=== PATIENT | female | born 1975 | race Caucasian/White ===

== ENCOUNTER 2016-12-30 14:02 | Emergency (ER) | payer OTHER ==
[~2016-12-30] VITALS: Ht 162.6 cm; Wt 81.6 kg
[2016-12-30] MEDS ORDERED: cloNIDine HCL 0.1 MG TAB PO ONE (15:00)
[2016-12-30] MEDS ORDERED: ONDANSETRON HCL 4 MG/2 ML VIAL IM ONE (15:00)
[2016-12-30] MEDS ORDERED: MORPHINE SULFATE 4 MG/ML SYRG IM ONE (15:00)
[2016-12-30 16:19] VITALS: BP 179/121
== END 2016-12-30 16:41 | disposition home or self-care (01) ==
LOC: ER 14:02
DX: S16.1XXA Strain of muscle, fascia and tendon at neck level, initial encounter (principal); I10 Essential (primary) hypertension; F17.210 Nicotine dependence, cigarettes, uncomplicated; Z90.49 Acquired absence of other specified parts of digestive tract
CPT/HCPCS: 96372; 99284; J2270; J2405

== ENCOUNTER 2017-07-09 11:58 | Emergency (ER) | payer OTHER ==
[~2017-07-09] VITALS: Ht 162.6 cm; Wt 86.2 kg
[2017-07-09 12:05] VITALS: BP 154/101
== END 2017-07-09 13:52 | disposition left against medical advice (07) ==
LOC: ER 11:58
DX: I10 Essential (primary) hypertension (principal); R20.0 Anesthesia of skin; Z53.21 Procedure and treatment not carried out due to patient leaving prior to being seen by health care provider
CPT/HCPCS: 93005

== ENCOUNTER 2025-01-23 17:39 | Inpatient (IN) | payer OTHER, SELFPAY ==
[~2025-01-23] VITALS: Ht 162.6 cm; Wt 94.0 kg
--- NOTE | 2025-01-23 19:24 | ED.PDOC ---
HPI (NEURO) HPI Comments 49 year old female with a Hx of HTN, Seizures, and CVA presents to the ED for the c/c of Constant Left Arm/Leg Numbness, and Tingling. Pt states that her symptoms started 5x days ago and has found no alleviating factors. Patient states the symptoms started in her left left hand and foot, then the numbness/tingling started to progress to her left wrist and ankle. Patient states she went to urgent Care for the symptoms, and was referred to the ER for further evaluation. No other associated symptoms, modifiers, recent injuries or sick contacts present at this time. Chief Complaint: Left Sided Weakness Time Seen by MD: 19:19 Reviewed Notes: Nurses Notes, Medications, Allergies Information Source: Patient Mode of Arrival: Ambulatory Severity: Moderate Dizziness/Weakness Severity: Does not affect activitie Headache Severity: Moderate Timing: Days Duration: Intermittent, Days Prehospital treatment: None Numbness Location: (L) Sided, (L) Arm, (L) Leg Onset: At rest Circumstances: Spontaneous Symptoms: Weakness, Numbness Before: Normal During: Awake History of: CVA, Hypertension Associated Signs and Symptoms: Weakness, Numbness Past Medical History PAST MEDICAL HISTORY: CVA, HTN, Seizures Surgical History: Cholecystectomy EDGER LINER History: No Pertinent EDGER LINER History Family History Family History: Reviewed,noncontributory to illness Social History Smoker: Cigarettes, Less Than 1 Pack/Day Alcohol: Rarely Drugs: Denies Drug Use Lives In: Home All Other Systems: Reviewed and Negative (Comprehensive systems review obtained and negative except for what is stated in the HPI.) Physical Exam General Appearance: No Apparent Distress, Obese HEENT: Other (Pupils and face symmetric. Moist mucous membranes.) Neck: Full Range of Motion, Normal Inspection Respiratory: Lungs Clear, No Accessory Muscle Use, No Respiratory Distress, Normal Breath Sounds Cardiovascular: No Edema, No JVD, Regular Rate/Rhythm Breast Exam: Deferred Gastrointestinal: Non Tender, Soft Genitalia: Deferred Pelvic: Deferred Rectal: Deferred Extremities: Normal inspection, Normal range of motion, Non-tender, No pedal edema Neurologic: Alert (Oriented x4), rn new grad II-XII nml as Tested, Normal Affect, Normal Mood, Other (Ambulatory. Diminished light touch sensation left hand/wrist, left foot/ankle) Cerebellar Function: NOT DONE Reflexes: NOT DONE Skin: Dry, Normal Color, Warm Lymphatic: NOT DONE Was a procedure done? Was a procedure done?: No Differential Diagnosis (SZ) Seizure: N/A CVA: CVA, Electrolyte Imbalance, Encephalopathy, Hypoglycemia, TIA, Other (Brandi pheral neuropathy) General Weakness: Anemia X-Ray, Labs, Meds, VS Vital Signs Date Time Temp Pulse Resp B/P (MAP) Pulse Ox O2 Delivery O2 Flow Rate FiO2 01/23/25 19:51 98.7 90 18 115/73 (87) 99 98.7 01/23/25 19:51 90 18 01/23/25 17:43 97.3 97 18 119/70 77 97.3 Lab Test 01/23/25 20:39 01/23/25 19:37 01/23/25 17:50 Range/Units Troponin I High Sensitivity 8 8 </=34 ng/L White Blood Count 10.5 4.4-10.8 10^3/uL Red Blood Count 5.63 H 4.0-5.20 10^6/uL Hemoglobin 17.3 H 12.2-16.2 g/dL Hematocrit 50.6 H 36.0-46.0 % Mean Corpuscular Volume 89.9 80.0-100.0 fL Mean Corpuscular Hemoglobin 30.8 28.0-32.0 pg Mean Corpuscular Hemoglobin Concent 34.2 32.0-36.0 g/dL Red Cell Distribution Width 13.4 11.8-14.3 % Platelet Count 295 140-450 10^3/uL Mean Platelet Volume 7.4 6.9-10.8 fL Neutrophils (%) (Auto) 68.8 37.0-80.0 % Lymphocytes (%) (Auto) 20.5 10.0-50.0 % Monocytes (%) (Auto) 6.7 0.0-12.0 % Eosinophils (%) (Auto) 3.2 0.0-7.0 % Basophils (%) (Auto) 0.8 0.0-2.0 % Neutrophils # (Auto) 7.3 1.6-8.6 10 ^3/uL Lymphocytes # (Auto) 2.2 0.4-5.4 10 ^3/uL Monocytes # (Auto) 0.7 0-1.3 10 ^3/uL Eosinophils # (Auto) 0.3 0-0.8 10 ^3/uL Basophils # (Auto) 0.1 0-0.2 10 ^3/uL Nucleated Red Blood Cells 0.2 % Sodium Level 137 136-145 mmol/L Potassium Level 4.5 3.5-5.1 mmol/L Chloride Level 107 98-107 mmol/L Carbon Dioxide Level 23 20-31 mmol/L Anion Gap 7 5-15 Blood Urea Nitrogen 13 9-23 mg/dL Creatinine 1.01 0.550-1.02 mg/dL Glomerular Filtration Rate Calc 69 >90 mL/min BUN/Creatinine Ratio 12.9 10.0-20.0 Serum Glucose 78 74-106 mg/dL Calcium Level 8.9 8.7-10.4 mg/dL B-Type Natriuretic Peptide 22.05 0-100 pg/mL Urine Color Colorless Yellow Urine Clarity Turbid H Clear Urine pH 5.5 5.0-9.0 Urine Specific [place] 1.023 1.001-1.035 Urine Protein Negative Negative Urine Ketones Negative Negative Urine Blood Negative Negative /uL Urine Nitrite 2+ H Negative Urine Bilirubin Negative Negative Urine Urobilinogen Normal Negative mg/dL Urine Leukocyte Esterase 3+ Negative /uL Urine RBC 7 0 - 4 /hpf Urine Microscopic WBC 14 H 0-5 /HPF Urine Squamous Epithelial Cells Few <5 /hpf Urine Bacteria None seen None Seen /hpf Urine Mucus Few None Seen Urine Glucose Normal Normal mg/dL Urine Test Negative Negative Current Medications Medications (Trade) Dose Ordered Sig/Mariano Route Start Time Stop Time Status Last Admin Aspirin 325 mg ONCE ONCE PO 01/23/25 19:30 01/23/25 19:31 DC 01/23/25 19:30 Ceftriaxone Sodium 50 ml @ 100 mls/hr ONCE ONCE IV 01/23/25 21:15 01/23/25 21:44 DC 01/23/25 23:23 PROCEDURE(s): HWOCT - HEAD WITHOUT CONTRAST REASON: L hand/wrist, L foot/ankle numbness ORDER NUMBER(s): [id number], ACCESSION NUMBER(s): [id number] Indication: L hand/wrist, L foot/ankle numbness Comparison: None Technique: Utilizing a multislice CT scanner, a CT scan of the brain was performed without intravenous contrast. Coronal and sagittal reformatted images. All CT scans at this facility use dose modulation, iterative reconstruction, and/or weight based dosing when appropriate to reduce radiation dose to as low as reasonably achievable. Dose: CTDIvol: 53.28 mGy, DLP: 943.46 mGy.cm FINDINGS: Evaluation is mildly degraded by motion and streak artifact. There is tissue loss with gliosis/encephalomalacia within the left temporoparietal lobe. There is ex vacuo dilatation of the left lateral ventricle. There is no evidence for acute territorial infarct, hemorrhage, or mass effect. The orbits are normal. The visualized paranasal sinuses and mastoid air cells are clear. The soft tissues and osseous structures appear within normal limits. IMPRESSION: 1. Subacute to chronic left MCA territory infarct with ex vacuo dilatation of the left lateral ventricle. Comparison with prior outside imaging is suggested in assessing acuity and interval change. If no prior imaging is available, MRI is suggested in further assessment. 2. No acute intracranial hemorrhage. X-Ray, Labs, Meds, VS Comment 49 year old female with a Hx of HTN, Seizures, and CVA presents to the ED for the c/c of Constant Left Arm/Leg Numbness, and Tingling for the last 5 days Vitals unremarkable Exam remarkable for diminished light touch sensation in the left hand/wrist and left foot/ankle Rhythm strip independently interpreted by me: Sinus rhythm, rate 97, no ectopy. CT head IMPRESSION: 1. Subacute to chronic left MCA territory infarct with ex vacuo dilatation of the left lateral ventricle. Comparison with prior outside imaging is suggested in assessing acuity and interval change. If no prior imaging is available, MRI is suggested in further assessment. 2. No acute intracranial hemorrhage. CBC, basic metabolic panel, BNP and troponin unremarkable UA abnormal consistent with UTI Patient treated with the following in the ED: Aspirin 325 mg p.o., Rocephin 1 g IV On re-evaluation, there have been no new neurologic changes. Vitals were stable. Plan is to admit the patient for brain MRI and Neurology evaluation. Time of 1ST Reevaluation: 19:51 Reevaluation 1ST: Unchanged Patient Education/Counseling: Diagnosis, Treatment, Need For Follow Up Family Education/Counseling: No Family Present Departure 1 Departure Time of Disposition: 21:00 Impression: Primary Impression: Left upper extremity numbness Additional Impressions: Numbness of left lower extremity UTI (urinary tract infection) Disposition: 09 ADMITTED INPATIENT Admit to: Tele Condition: Guarded e-Prescriptions No Active Prescriptions or Reported Meds Critical Care Note Critical Care Time?: No Stability Stability form required: No Heart Score Heart Score: Heart Score Response (Comments) Value History N/A 0 EKG N/A 0 Age N/A 0 Risk Factors N/A 0 Troponin N/A 0 Total 0 I personally scribed for TERRELL MEDEL MD ([email or web address]) on 01/23/25 at 19:24. Electronically submitted by Omar Ta ([email or web address]). I personally scribed for TERRELL MEDEL MD ([email or web address]) on 01/23/25 at 21:11. Electronically submitted by Omar Ta ([email or web address]). TERRELL MEDEL MD Jan 23, 2025 19:24
[2025-01-23 19:46] LABS: Hematocrit 50.6 % (36.0-46.0); Hemoglobin 17.3 g/dL (12.2-16.2); Mean Corpuscular Hemoglobin 30.8 pg (28.0-32.0); Mean Corpuscular Volume 89.9 fL (80.0-100.0); Nucleated Red Blood Cells % 0.2 %
[2025-01-23 19:54] LABS: Anion Gap 7 (5-15); Carbon Dioxide 23 mmol/L (20-31); Potassium 4.5 mmol/L (3.5-5.1); Sodium 137 mmol/L (136-145)
[2025-01-23 19:55] LABS: Calcium 8.9 mg/dL (8.7-10.4)
[2025-01-23 20:00] LABS: BUN/Creatinine Ratio 12.9 (10.0-20.0); Blood Urea Nitrogen 13 mg/dL (9-23); Glucose 78 mg/dL (74-106)
[2025-01-23 20:01] LABS: Chloride 107 mmol/L (98-107)
[2025-01-23 20:29] LABS: Urine Protein, UAD Negative (Negative)
--- NOTE | 2025-01-23 20:31 | DVH ---
Indication: L hand/wrist, L foot/ankle numbness Comparison: None Technique: Utilizing a multislice CT scanner, a CT scan of the brain was performed without intravenou s contrast. Coronal and sagittal reformatted images. All CT scans at this facility use dose modulation, iterative reconstruction, and/or weight based dosi ng when appropriate to reduce radiation dose to as low as reasonably achievable. Dose: CTDIvol: 53.28 mGy, DLP: 943.46 mGy.cm FINDINGS: Evaluation is mildly degraded by motion and streak artifact. There is tissue loss with gliosis/encephalomalacia within the left temporoparietal lobe. There is ex vacuo dilatation of the left lateral ventricle. There is no evidence for acute territorial infarct, hemorrhage, or mass effect. The orbits are normal. The visualized paranasal sinuses and mastoid air cells are clear. The soft t issues and osseous structures appear within normal limits. IMPRESSION: 1. Subacute to chronic left MCA territory infarct with ex vacuo dilatation of the left lateral ventri liberty. Comparison with prior outside imaging is suggested in assessing acuity and interval change. If no prior imaging is available, MRI is suggested in further assessment. 2. No acute intracranial hemorrhage.
[2025-01-23] MEDS ORDERED: MORPHINE SULFATE INJ 2 MG/ml SYRG IV PRN (22:00)
[2025-01-23] MEDS ORDERED: NITROGLYCERIN 0.4 MG SL TAB SL PRN (22:00)
[2025-01-23] MEDS ORDERED: DOCUSATE SOD 100 MG CAP PO PRN (22:00)
[2025-01-23] MEDS ORDERED: ONDANSETRON HCL 4 MG/2 ML VIAL IV PRN (22:00)
[2025-01-23] MEDS ORDERED: ACETAMINOPHEN 325 MG TAB PO PRN (22:00)
--- NOTE | 2025-01-23 23:16 | DVHHP2 ---
History of Present Illness History of Present Illness This is a 49-year-old female with a history of hypertension, seizures, and cerebrovascular accident (CVA) 2019 with no residual weakness, same sex partner presents to the emergency department with a 5-day history of constant numbness and tingling in the left upper and lower extremities. Symptoms began spontaneously at rest, initially affecting the left hand and foot, and gradually progressed to involve the left wrist and ankle. The patient reports no alleviating factors and denies any associated symptoms such as dizziness, recent injuries, sick contacts, or other modifiers. She was evaluated at urgent care and referred to the ED for further assessment. She arrived ambulatory and reports moderate severity of symptoms, which are intermittent and do not affect daily activities. No prehospital treatment was administered. Hemodynamically stable. CBC within normal limit, likely concentrated due to dehydration, CBC unremarkable, troponin BNP unremarkable, urinalysis leukocyte esterase, nitrite positive pointing towards UTI, previous microbiology in 2011, no resistant bacteria noted. CT shows previous stroke but no acute changes, Subacute to chronic left MCA territory infarct with ex vacuo dilatation of the left lateral ventricle. PAST MEDICAL HISTORY: CVA 2019 with no residual weakness, HTN, Seizures Surgical History: Cholecystectomy, tonsillectomy ZIGZAG APPLIQUER History: No Pertinent ZIGZAG APPLIQUER History Social History : Smoker: Cigarettes occasionally, Less Than 1 Pack/Day Alcohol: Drink socially Drugs: Denies Drug Use Lives In: Home Allergy: No known allergies outpatient medications: Lisinopril 20 mg p.o. daily Review of Systems Constitutional: Yes: Malaise; No: Fever, Chills, Sweats, Weakness, Other Eyes: No: Pain, Vision change, Conjunctivae inflammation, Eyelid inflammation, Other, Redness ENT: No: Ear pain, Ear discharge, Nose pain, Nose discharge, Nose congestion, Mouth pain, Mouth swelling, Throat pain, Throat swelling, Other Respiratory: No: Cough, Dry, Shortness of breath, SOB with excertion, Wheezing, Hemoptysis, Pleuritic Pain, Sputum, Wheezing, Other Cardiovascular: No: Chest Pain, Palpitations, Orthopnea, Paroxysmal Noc. Dyspnea, Edema, Lt Headedness, Other Gastrointestinal: No: Nausea, Vomiting, Abdominal Pain, Diarrhea, Constipation, Melena, Hematochezia, Other Genitourinary: No Dysuria; Frequency; No Incontinence, No Hematuria, No Retention, No Other Musculoskeletal: No: other, neck pain, shoulder pain, arm pain, back pain, hand pain, leg pain, foot pain Skin: No: Rash, Lesions, Jaundice, Bruising, Other Neurological: Numbness, Other (Tingling sensation in both left upper and lower extremity); No: Weakness, Incoordination, Change in speech, Confusion, Seizures Allergies: Coded Allergies: NO KNOWN ALLERGIES (Unverified , 04/26/12) Medications Current Medications Medications Dose Ordered Sig/Mariano Route Start Time Stop Time Status Last Admin Dose Admin Sodium Chloride 1,000 ml @ 60 mls/hr [id number] IV 01/23/25 22:00 UNV Acetaminophen 325 mg Q4HP PRN PO 01/23/25 22:00 UNV Ondansetron HCl 4 mg Q4HP PRN IV 01/23/25 22:00 UNV Docusate Sodium 100 mg BIDPRN PRN PO 01/23/25 22:00 UNV Enoxaparin Sodium 40 mg DAILY SC 01/24/25 10:00 UNV Nitroglycerin 0.4 mg Q5MINP PRN SL 01/23/25 22:00 UNV Morphine Sulfate 2 mg Q30M PRN IV 01/23/25 22:00 UNV Atorvastatin Calcium 40 mg HS PO 01/24/25 22:00 UNV Ceftriaxone Sodium 50 ml @ 100 mls/hr DAILY@09 IV 01/24/25 09:00 UNV Aspirin 81 mg DAILY PO 01/24/25 10:00 UNV Exam Vital Signs Vital Signs Date Time Temp Pulse Resp B/P (MAP) Pulse Ox O2 Delivery O2 Flow Rate FiO2 01/23/25 19:51 98.7 90 18 115/73 (87) 99 98.7 General Appearance: Oriented X3, Cooperative, mild distress HEENT: Atraumatic, PERRLA, EOMI Respiratory: Clear to auscultation, Normal air movement Cardiovascular: Regular rate, Normal S1, Normal S2 Abdominal: Normal bowel sounds, Soft, No tenderness Extremities: No clubbing, No cyanosis, No edema Skin: No rashes, No breakdown Neuro: Normal gait, Strength at 5/5 X4 ext (Tingling sensation both upper and lower extremity), Sensation intact Labs/Xrays Labs Test 01/23/25 20:39 01/23/25 19:37 01/23/25 17:50 Range/Units Troponin I High Sensitivity 8 </=34 ng/L White Blood Count 10.5 4.4-10.8 10^3/uL Red Blood Count 5.63 H 4.0-5.20 10^6/uL Hemoglobin 17.3 H 12.2-16.2 g/dL Hematocrit 50.6 H 36.0-46.0 % Mean Corpuscular Volume 89.9 80.0-100.0 fL Mean Corpuscular Hemoglobin 30.8 28.0-32.0 pg Mean Corpuscular Hemoglobin Concent 34.2 32.0-36.0 g/dL Red Cell Distribution Width 13.4 11.8-14.3 % Platelet Count 295 140-450 10^3/uL Mean Platelet Volume 7.4 6.9-10.8 fL Neutrophils (%) (Auto) 68.8 37.0-80.0 % Lymphocytes (%) (Auto) 20.5 10.0-50.0 % Monocytes (%) (Auto) 6.7 0.0-12.0 % Eosinophils (%) (Auto) 3.2 0.0-7.0 % Basophils (%) (Auto) 0.8 0.0-2.0 % Neutrophils # (Auto) 7.3 1.6-8.6 10 ^3/uL Lymphocytes # (Auto) 2.2 0.4-5.4 10 ^3/uL Monocytes # (Auto) 0.7 0-1.3 10 ^3/uL Eosinophils # (Auto) 0.3 0-0.8 10 ^3/uL Basophils # (Auto) 0.1 0-0.2 10 ^3/uL Nucleated Red Blood Cells 0.2 % Sodium Level 137 136-145 mmol/L Potassium Level 4.5 3.5-5.1 mmol/L Chloride Level 107 98-107 mmol/L Carbon Dioxide Level 23 20-31 mmol/L Anion Gap 7 5-15 Blood Urea Nitrogen 13 9-23 mg/dL Creatinine 1.01 0.550-1.02 mg/dL Glomerular Filtration Rate Calc 69 >90 mL/min BUN/Creatinine Ratio 12.9 10.0-20.0 Serum Glucose 78 74-106 mg/dL Calcium Level 8.9 8.7-10.4 mg/dL B-Type Natriuretic Peptide 22.05 0-100 pg/mL Urine Color Colorless Yellow Urine Clarity Turbid H Clear Urine pH 5.5 5.0-9.0 Urine Specific [place] 1.023 1.001-1.035 Urine Protein Negative Negative Urine Ketones Negative Negative Urine Blood Negative Negative /uL Urine Nitrite 2+ H Negative Urine Bilirubin Negative Negative Urine Urobilinogen Normal Negative mg/dL Urine Leukocyte Esterase 3+ Negative /uL Urine RBC 7 0 - 4 /hpf Urine Microscopic WBC 14 H 0-5 /HPF Urine Squamous Epithelial Cells Few <5 /hpf Urine Bacteria None seen None Seen /hpf Urine Mucus Few None Seen Urine Glucose Normal Normal mg/dL SEPSIS Sepsis Screen Date sepsis recognized/suspect: Jan 23, 2025 Time Sepsis recognized/suspect: 1745 Recent Procedure: No On Antibiotic Therapy: No Respiratory Rate >20: No Heart Rate >90: No Temp<36 C (96.8 F) or >38.3 C: No SBP <90 or MAP <65 mmHG: No New Acute Mental Status Change: No Is the patient on CPAP, BIPAP,: No Physician Orders Electrocardigram (01/23/25 19:28) Head Without Contrast (01/23/25 19:28) Admit (01/23/25 22:00) Allergies (01/23/25 22:00) Code Status (01/23/25 22:00) Sodium Chloride 0.9% (01/23/25 22:00) Docusate Sodium Capsule (Colace Capsule) (01/23/25 22:00) Enoxaparin Sodium (Lovenox) (01/24/25 10:00) Complete Blood Count (01/24/25 04:00) Comprehensive Metabolic Panel (01/24/25 04:00) Cardiac Diet-2gna,Lofat,Lochol (01/24/25 Breakfast) Condition: Fair (01/23/25 22:00) Nitroglycerin Sublingual (Ntrostat Subli (01/23/25 22:00) Morphine Sulfate Injection (01/23/25 22:00) Acetaminophen Tablet (Tylenol Tablet) (01/23/25 22:00) Ondansetron Hcl (Zofran) (01/23/25 22:00) Atorvastatin (Lipitor) (01/24/25 22:00) Ceftriaxone 1gm/50ml D5w (Rocephin) (01/24/25 09:00) Aspirin Tablet (01/24/25 10:00) Urine Bacterial Culture (01/23/25 23:06) Blood Culture (01/23/25 23:06) Test, Urine (01/23/25 23:06) Echo 2d Mode Cardiac Dop (01/23/25 23:06) Vital Signs Date Time Temp Pulse Resp B/P (MAP) Pulse Ox O2 Delivery O2 Flow Rate FiO2 01/23/25 19:51 98.7 90 18 115/73 (87) 99 98.7 01/23/25 19:51 90 18 01/23/25 17:43 97.3 97 18 119/70 77 97.3 Laboratory Tests Test 01/23/25 19:37 White Blood Count 10.5 10^3/uL (4.4-10.8) Medications Medications Dose Ordered Sig/Mariano Route Start Time Stop Time Status Last Admin Dose Admin Aspirin 325 mg ONCE ONCE PO 01/23/25 19:30 01/23/25 19:31 DC 01/23/25 19:30 325 MG Assessment/Plan Assessment/Plan # Urinary tract infection possibly gm positive/gm negative organism Status post IV ceftriaxone, aspirin 325 Likely uncomplicated, IV ceftriaxone 06/30, urine culture, blood culture, inpatient IV antibiotics to continue NSS 60 cc/hours Urine culture and blood cultures we will follow Tylenol 650 mg p.o. q.6 p.r.n. for pain # Neuropathy/stroke: Hemorrhagic stroke ruled out with CT scan, in-hospital monitoring, telemetry, neuro checks continue aspirin atorvastatin, as needed physiotherapy, r/o TIA vs Stroke # CVA, history 2018 with no residual weakness CT shows previous stroke but no acute changes, Subacute to chronic left MCA territory infarct with ex vacuo dilatation of the left lateral ventricle. Atorvastatin 40 mg p.o. daily Aspirin 81 mg p.o. daily Lipid profile and HbA1c will follow Echo # Essential hypertension Restart home med lisinopril 20mg. Monitor blood pressure # R/o Seizures, as per patient Not on any medication. Never seen by neurologist. # H/o Cholecystectomy # H/o Tonsillectomy Diet: Cardiac GI prophylaxis: Pantoprazole 40 mg p.o. daily DVT prophylaxis: Lovenox 40 mg sc daily Case discussed with Dr. Kim. Code status: Full code. Complex patient care discussion needed total 35 minutes. PCP: SADAF ELLER in Plan discussed with: Patient, Other (Nurse) My Orders Orders - MARY GA Procedure Category Date Status Time Admit ADMIT 01/23/25 Transmitted 22:00 Allergies WILLIAM 01/23/25 In Process 22:00 Code Status CODE 01/23/25 Transmitted 22:00 Sodium Chloride 0.9% PHA 01/23/25 Logged 22:00 Docusate Sodium PHA 01/23/25 Logged Capsule (Colace 22:00 Enoxaparin Sodium PHA 01/24/25 Logged (Lovenox) 10:00 Complete Blood Count LAB 01/24/25 Verified 04:00 Comprehensive LAB 01/24/25 Verified Metabolic Panel 04:00 Cardiac DIET 01/24/25 Transmitted Diet-2gna,Lofat,Lochol Breakfast Condition: Fair WILLIAM 01/23/25 In Process 22:00 Nitroglycerin PHA 01/23/25 Logged Sublingual (Ntrostat 22:00 Morphine Sulfate PHA 01/23/25 Logged Injection 22:00 Acetaminophen Tablet PHA 01/23/25 Logged (Tylenol Tablet) 22:00 Ondansetron Hcl PHA 01/23/25 Logged (Zofran) 22:00 Atorvastatin (Lipitor) PHA 01/24/25 Logged 22:00 Ceftriaxone 1gm/50ml PHA 01/24/25 Logged D5w (Rocephin) 09:00 Aspirin Tablet PHA 01/24/25 Logged 10:00 Urine Bacterial BRANDIN 01/23/25 Logged Culture 23:06 Blood Culture BRANDIN 01/23/25 Logged 23:06 Test, Urine LAB 01/23/25 Logged 23:06 Echo 2d Mode Cardiac US 01/23/25 Logged DOP 23:06 Date of Service: Jan 23, 2025 Billing Provider: KERON KIM MD Common Visit Codes: [id number] INP/OBS CARE (HIGH) Secondary Visit Codes: [id number] CARE PLAN 30 MINUTES MARY GA Jan 23, 2025 23:16
[2025-01-23] MEDS: cefTRIAXone 1GM/50ML D5W 50 ML IV ONE (23:23)
[2025-01-23] MEDS: SODIUM CHLORIDE 0.9% 1,000 ML IV SCH (23:26)
[2025-01-24 04:04] LABS: Hematocrit 48.1 % (36.0-46.0); Hemoglobin 16.7 g/dL (12.2-16.2); Mean Corpuscular Hemoglobin 31.1 pg (28.0-32.0); Mean Corpuscular Volume 89.5 fL (80.0-100.0); Nucleated Red Blood Cells % 0.2 %
[2025-01-24 04:11] LABS: Alanine Aminotransferase 14 U/L (7-40); Albumin 4.6 g/dL (3.2-4.8); Alkaline Phosphatase 71 U/L (46-116); Anion Gap 9 (5-15); BUN/Creatinine Ratio 15.2 (10.0-20.0); Blood Urea Nitrogen 14 mg/dL (9-23); Calcium 9.0 mg/dL (8.7-10.4); Carbon Dioxide 25 mmol/L (20-31); Chloride 105 mmol/L (98-107); Cholesterol 168 mg/dL (< 200); Glucose 93 mg/dL (74-106); HDL Cholesterol 43 mg/dL (40-59); Potassium 3.8 mmol/L (3.5-5.1); Sodium 139 mmol/L (136-145); Total Protein 6.8 g/dL (5.7-8.2)
[2025-01-24 04:15] LABS: Bilirubin, Total 0.3 mg/dL (0.2-1.0); Triglycerides 231 mg/dL (< 150)
[2025-01-24] MEDS: cefTRIAXone 1GM/50ML D5W 50 ML IV SCH (08:31)
[2025-01-24] MEDS: ENOXAPARIN SOD 40 MG/0.4 ML SYRINGE SC SCH (08:31)
[2025-01-24 08:54] VITALS: BP 109/62; PULSE 72; PULSE 76; RESP 16; RESP 18; TEMP 98.2; O2SAT 97; O2SAT 98
[2025-01-24] MEDS ORDERED: LISI20TA56 PO (09:25)
[2025-01-24 13:00] VITALS: BP 117/51; PULSE 74; RESP 18; TEMP 98.3; O2SAT 98
--- NOTE | 2025-01-24 15:00 | DVHPNRES ---
Progress Note Date Seen: Jan 24, 2025 Resident Creating Document: SOIFA GROVE Medical Necessity Reason Pt with a Central, PICC or Fol: No Subjective Review of Systems This is a 49-year-old female with past medical history of hypertension and cerebrovascular accident (CVA) 2019 with no residual weakness presents to the ED with a 5-day history of constant left arm/leg numbness, and tingling. Patient reports that her symptoms started 5 days ago and has found no alleviating factors. Patient states the symptoms started in her left hand and foot, then the numbness/tingling started to progress to her left wrist and ankle. Patient states she went to urgent Care for the symptoms, and was referred to the ER for further evaluation. Patient denies other associated symptoms, modifiers, recent injuries or sick contacts present at this time. Urinalysis shows leukocyte esterase, nitrite positive pointing towards UTI, previous microbiology in 2011, no resistant bacteria noted. CT shows previous stroke but no acute changes, Subacute to chronic left MCA territory infarct with ex vacuo dilatation of the left lateral ventricle. 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 daily Constitutional: Yes: Malaise; No: Fever, Chills, Sweats, Weakness, Other Eyes: No: Pain, Vision change, Conjunctivae inflammation, Eyelid inflammation, Other, Redness ENT: No: Ear pain, Ear discharge, Nose pain, Nose discharge, Nose congestion, Mouth pain, Mouth swelling, Throat pain, Throat swelling, Other Respiratory: No: Cough, Dry, Shortness of breath, SOB with excertion, Wheezing, Hemoptysis, Pleuritic Pain, Sputum, Wheezing, Other Cardiovascular: No: Chest Pain, Palpitations, Orthopnea, Paroxysmal Noc. Dyspnea, Edema, Lt Headedness, Other Gastrointestinal: No: Nausea, Vomiting, Abdominal Pain, Diarrhea, Constipation, Melena, Hematochezia, Other Genitourinary: No Dysuria; Frequency; No Incontinence, No Hematuria, No Retention, No Other Musculoskeletal: No: other, neck pain, shoulder pain, arm pain, back pain, hand pain, leg pain, foot pain Skin: No: Rash, Lesions, Jaundice, Bruising, Other Neurological: Numbness, Other (Tingling sensation in both left upper and lower extremity); No: Weakness, Incoordination, Change in speech, Confusion, Seizures Allergies: Coded Allergies: NO KNOWN ALLERGIES (Unverified , 04/26/12) Objective vital signs Vital Sign Date Time Temp Pulse Resp B/P (MAP) Pulse Ox O2 Delivery O2 Flow Rate FiO2 01/24/25 13:00 98.3 74 18 117/51 (73) 98 98.3 medications Current Medications Medications Dose Ordered Sig/Mariano Route Start Time Stop Time Status Last Admin Dose Admin Sodium Chloride 1,000 ml @ 60 mls/hr [id number] IV 01/23/25 22:00 01/24/25 08:32 60 MLS/HR Acetaminophen 325 mg Q4HP PRN PO 01/23/25 22:00 Ondansetron HCl 4 mg Q4HP PRN IV 01/23/25 22:00 Docusate Sodium 100 mg BIDPRN PRN PO 01/23/25 22:00 Enoxaparin Sodium 40 mg DAILY SC 01/24/25 10:00 01/24/25 08:31 40 MG Nitroglycerin 0.4 mg Q5MINP PRN SL 01/23/25 22:00 Morphine Sulfate 2 mg Q30M PRN IV 01/23/25 22:00 Atorvastatin Calcium 40 mg HS PO 01/24/25 22:00 Ceftriaxone Sodium 50 ml @ 100 mls/hr DAILY@09 IV 01/24/25 09:00 01/24/25 08:31 100 MLS/HR Aspirin 81 mg DAILY PO 01/24/25 10:00 01/24/25 08:31 81 MG Examination General Appearance: Oriented X3, Cooperative, mild distress HEENT: Atraumatic, PERRLA, EOMI Respiratory: Clear to auscultation, Normal air movement Cardiovascular: Regular rate, Normal S1, Normal S2 Abdominal: Normal bowel sounds, Soft, No tenderness Extremities: No clubbing, No cyanosis, No edema Skin: No rashes, No breakdown Neuro: Normal gait, Strength at 5/5 X4 ext (Tingling sensation both upper and lower extremity), Sensation intact laboratory and microbiology Laboratory Tests 01/24/25 02:43 Test 01/24/25 02:43 Range/Units Serum Glucose 93 74-106 mg/dL Labs and/or images reviewed: Labs reviewed by me, Image(s) reviewed by me Problem List/Assessment/Plan Problem List/Assessment/Plan # CVA, history 2019 with no residual weakness -CT shows previous stroke but no acute changes, Subacute to chronic left MCA territory infarct with ex vacuo dilatation of the left lateral ventricle. -Atorvastatin 40 mg p.o. daily -Aspirin 81 mg p.o. daily -Lipid profile and HbA1c will follow -Echo # Urinary tract infection possibly gm positive/gm negative organism -Status post IV ceftriaxone, aspirin 325 -Likely uncomplicated, IV ceftriaxone 06/30, urine culture, blood culture, inpatient IV antibiotics to continue -NSS 60 cc/hours -Urine culture and blood cultures we will follow -Tylenol 650 mg p.o. q.6 p.r.n. for pain # Neuropathy/stroke: -Hemorrhagic stroke ruled out with CT scan, in-hospital monitoring, telemetry, neuro checks continue aspirin atorvastatin, as needed physiotherapy, r/o TIA vs Stroke # Essential hypertension -Restart home med lisinopril 20mg. -Monitor blood pressure # H/o Cholecystectomy # H/o Tonsillectomy Diet: Cardiac PUD prophylaxis: protonix 40mg DVT prophylaxis: Levonox 40mg Goals of care: Full code, discussed for >16 minutes on 01/25/24 Plan discussed with patient Plan discussed with Dr. Arciniega Plan discussed with: Patient, Other (RN) My Orders My Orders Orders - SOFIA GROVE Procedure Category Date Status Time Complete Blood Count LAB 01/25/25 Verified 04:00 Basic Metabolic Panel LAB 01/25/25 Verified 04:00 Date of Service: Jan 24, 2025 Billing Provider: RAQUEL ARCNIIEGA MD Common Visit Codes: 95458-[id number] INP/OBS CARE (HIGH) Secondary Visit Codes: 87102-[id number] CARE PLAN 30 MINUTES SOFIA GROVE Jan 24, 2025 15:00 RAQUEL ARCINIEGA MD Jan 24, 2025 21:48
[2025-01-24 17:00] VITALS: BP 112/60; PULSE 60; RESP 16; TEMP 97.7; O2SAT 98
[2025-01-24 18:19] VITALS: BP 107/71; PULSE 72; RESP 16; TEMP 97.8; O2SAT 97
[2025-01-24 21:00] VITALS: BP 101/66; PULSE 87; RESP 17; TEMP 97.6; O2SAT 96
[2025-01-24] MEDS: ATORVASTATIN 20 MG TAB PO SCH (21:38)
[2025-01-25] VITALS (8 sets, daily range): BP systolic 90–144; BP diastolic 50–72; PULSE 65–82; RESP 16–22; TEMP 97.6–98.5; O2SAT 93–98
[2025-01-25 07:17] LABS: Hematocrit 43.0 % (36.0-46.0); Hemoglobin 15.1 g/dL (12.2-16.2); Mean Corpuscular Hemoglobin 30.9 pg (28.0-32.0); Mean Corpuscular Volume 88.2 fL (80.0-100.0); Nucleated Red Blood Cells % 0.0 %
[2025-01-25 07:34] LABS: Anion Gap 8 (5-15); Carbon Dioxide 23 mmol/L (20-31); Potassium 4.6 mmol/L (3.5-5.1); Sodium 140 mmol/L (136-145)
[2025-01-25 07:35] LABS: Calcium 8.3 mg/dL (8.7-10.4); Chloride 109 mmol/L (98-107)
[2025-01-25 07:40] LABS: BUN/Creatinine Ratio 17.9 (10.0-20.0); Blood Urea Nitrogen 15 mg/dL (9-23); Glucose 89 mg/dL (74-106)
--- NOTE | 2025-01-25 08:08 | ECG ---
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
--- NOTE | 2025-01-25 13:00 | DVH ---
Carotid Duplex Date: 01/25/2025 12:00 PM Clinical History: stoke Comparison: None Technique: Duplex Doppler evaluation of the extracranial carotid and vertebral arteries including col or Doppler and spectral/pulsed waveform analysis was performed. Findings: carotid velocites within normal limits. IMPRESSION: No hemodynamically significant stenosis noted in the right carotid system. No hemodynamically significant stenosis noted in the left carotid system. Reference: Radiology 2003; 229:[id number]
--- NOTE | 2025-01-25 13:28 | DVH ---
CLINICAL INDICATION: stroke COMPARISON: CT HEAD WITHOUT CONTRAST on DOS: 01/23/25 TECHNIQUE: Multisequence multiplanar MRI images of the brain were obtained without contrast. FINDINGS: Chronic left MCA territory infarct with associated encephalomalacia. Small foci of hyperin tense signal in the right centrum semiovale adjacent to the atrium of the right lateral ventricle, ap pears to be due to T2 shine through, with no associated hypointense signal on the ADC map. Small foci of hyperintense signal in the roz posteriorly also appear to be T2 shine through rather than acute infarcts. There are moderate areas of T2/FLAIR hyperintense signal in the periventricular and subcort ical white matter, which are nonspecific, but may be seen with chronic small-vessel ischemic disease or demyelinating disease in the appropriate clinical setting. Small T2/FLAIR hyperintense foci also n oted in the posterior aspect of the roz, measuring up to 0.7 cm in greatest dimension. No mass or mi dline shift. Ex vacuo dilatation of the left lateral ventricle due to the left MCA territory infarct. Ventricles are otherwise within normal limits. Basal cisterns are patent. [id number] mucosal thickening of the paranasal sinuses. Orbits are grossly unremarkable. IMPRESSION: 1. No evidence of acute intracranial abnormality. 2. Chronic left MCA territory infarcts. 3. Foci of hyperintense signal on the diffusion-weighted images in the right centrum semiovale and po ns appear to be due to T2 shine through rather than acute infarcts, when compared to the ADC maps. 4. Nonspecific areas of T2/FLAIR hyperintense signal in the periventricular and subcortical white mat ter, may be seen with chronic small-vessel ischemic disease or demyelinating disease in the appropria te clinical setting. 5. Additional findings as described above.
--- NOTE | 2025-01-25 14:22 | DVHPNRES ---
Progress Note Date Seen: Jan 25, 2025 Resident Creating Document: SOFIA GROVE Medical Necessity Reason Pt with a Central, PICC or Fol: No Subjective Review of Systems This is a 49-year-old female with past medical history of hypertension and cerebrovascular accident (CVA) 2019 with no residual weakness presents to the ED with a 5-day history of constant left arm/leg numbness, and tingling. Patient reports that her symptoms started 5 days ago and has found no alleviating factors. Patient states the symptoms started in her left hand and foot, then the numbness/tingling started to progress to her left wrist and ankle. Patient states she went to urgent Care for the symptoms, and was referred to the ER for further evaluation. Patient denies other associated symptoms, modifiers, recent injuries or sick contacts present at this time. Urinalysis shows leukocyte esterase, nitrite positive pointing towards UTI, previous microbiology in 2011, no resistant bacteria noted. CT shows previous stroke but no acute changes, Subacute to chronic left MCA territory infarct with ex vacuo dilatation of the left lateral ventricle. Patient seen at bedside. Patient complains with no signs of pain or respiratory distress. MRI Brain shows Chronic left MCA territory infarct with associated encephalomalacia. Nonspecific areas of T2/FLAIR hyperintense signal in the periventricular and subcortical white matter, may be seen with chronic small- vessel ischemic disease or demyelinating disease in the appropriate clinical setting. Neurology consult for abnormal MRI results and urology consult for recurrent complicated UTIs Objective vital signs Vital Sign Date Time Temp Pulse Resp B/P (MAP) Pulse Ox O2 Delivery O2 Flow Rate FiO2 01/25/25 13:00 98.3 76 16 104/52 (69) 93 98.3 01/24/25 08:54 Room Air* 0 21 Total Intake and Output 01/24/25 01/24/25 01/25/25 15:00 23:00 07:00 Intake Total 50 ml 800 ml Balance 50 ml 800 ml medications Current Medications Medications Dose Ordered Sig/Mariano Route Start Time Stop Time Status Last Admin Dose Admin Sodium Chloride 1,000 ml @ 60 mls/hr [id number] IV 01/23/25 22:00 01/24/25 08:32 60 MLS/HR Acetaminophen 325 mg Q4HP PRN PO 01/23/25 22:00 Ondansetron HCl 4 mg Q4HP PRN IV 01/23/25 22:00 Docusate Sodium 100 mg BIDPRN PRN PO 01/23/25 22:00 Enoxaparin Sodium 40 mg DAILY SC 01/24/25 10:00 01/25/25 09:31 40 MG Nitroglycerin 0.4 mg Q5MINP PRN SL 01/23/25 22:00 Morphine Sulfate 2 mg Q30M PRN IV 01/23/25 22:00 Atorvastatin Calcium 40 mg HS PO 01/24/25 22:00 01/24/25 21:38 40 MG Ceftriaxone Sodium 50 ml @ 100 mls/hr DAILY@09 IV 01/24/25 09:00 01/25/25 09:29 100 MLS/HR Aspirin 81 mg DAILY PO 01/24/25 10:00 01/25/25 09:12 81 MG Examination General Appearance: Oriented X3, Cooperative, mild distress HEENT: Atraumatic, PERRLA, EOMI Respiratory: Clear to auscultation, Normal air movement Cardiovascular: Regular rate, Normal S1, Normal S2 Abdominal: Normal bowel sounds, Soft, No tenderness Extremities: No clubbing, No cyanosis, No edema Skin: No rashes, No breakdown Neuro: Normal gait, Strength at 5/5 X4 ext (Tingling sensation both upper and lower extremity), Sensation intact laboratory and microbiology Laboratory Tests 01/25/25 06:01 Test 01/25/25 06:01 Range/Units Serum Glucose 89 74-106 mg/dL Microbiology Date/Time Source Procedure Growth Status 01/24/25 00:01 Blood Blood Culture - Preliminary NO GROWTH AFTER 24 HOURS OF INCUBATION. Resulted 01/23/25 17:50 Voided Urine Urine Culture - Preliminary Resulted Labs and/or images reviewed: Labs reviewed by (RN), Image(s) reviewed by (RN) Problem List/Assessment/Plan Problem List/Assessment/Plan # Subacute to chronic CVA, # history of CVA in 2019 with no residual weakness -CT shows previous stroke but no acute changes, Subacute to chronic left MCA territory infarct with ex vacuo dilatation of the left lateral ventricle. -MRI Brain shows Chronic left MCA territory infarct with associated encephalomalacia. Nonspecific areas of T2/FLAIR hyperintense signal in the periventricular and subcortical white matter, may be seen with chronic small- vessel ischemic disease or demyelinating disease in the appropriate clinical setting. -Carotid Doppler Study: No hemodynamically significant stenosis noted in the right carotid system. No hemodynamically significant stenosis noted in the left carotid system. -Atorvastatin 40 mg p.o. daily -Aspirin 81 mg p.o. daily -Lipid profile and HbA1c will follow -Echocardiogram performed -Neurology consult # Urinary tract infection possibly gm negative organism -Status post IV ceftriaxone, aspirin 325 -Likely uncomplicated, IV ceftriaxone 06/30, urine culture, blood culture, inpatient IV antibiotics to continue -NSS 60 cc/hours -Urine culture and blood cultures we will follow -Tylenol 650 mg p.o. q.6 p.r.n. for pain -Urology consult # Neuropathy -Hemorrhagic stroke ruled out with CT scan, in-hospital monitoring, telemetry, neuro checks continue aspirin atorvastatin, as needed physiotherapy, r/o TIA vs Stroke # Essential hypertension -Restart home med lisinopril 20mg. -Monitor blood pressure # H/o Cholecystectomy # H/o Tonsillectomy Diet: Cardiac PUD prophylaxis: protonix 40mg DVT prophylaxis: Levonox 40mg Goals of care: Full code, discussed for >16 minutes on 01/25/25 Plan discussed with patient Plan discussed with Dr. Arciniega Plan discussed with: Patient (RN), Other (RN) Date of Service: Jan 25, 2025 Billing Provider: RAQUEL ARCINIEGA MD Common Visit Codes: [id number] INP/OBS CARE(HIGH) SOFIA GROVE RESIDENT Jan 25, 2025 14:22 PAUL SINGH RESIDENT Jan 25, 2025 18:39 RAQUEL ARCINIEGA MD Jan 31, 2025 12:24
--- NOTE | 2025-01-25 18:31 | DVHINCON2 ---
Date of service: Jan 25, 2025 Referring Physician Hospitalist Reason for Consultation Recurrent UTIs History of Present Illness 49-year-old female with a history of hypertension, seizures, and cerebrovascular accident (CVA) 2019 with no residual weakness, same sex partner presents to the emergency department with a 5-day history of constant numbness and tingling in the left upper and lower extremities. Symptoms began spontaneously at rest, initially affecting the left hand and foot, and gradually progressed to involve the left wrist and ankle. The patient reports no alleviating factors and denies any associated symptoms such as dizziness, recent injuries, sick contacts, or other modifiers. She was evaluated at urgent care and referred to the ED for further assessment. She arrived ambulatory and reports moderate severity of symptoms, which are intermittent and do not affect daily activities. No prehospital treatment was administered. Hemodynamically stable. CBC within normal limit, likely concentrated due to dehydration, CBC unremarkable, troponin BNP unremarkable, urinalysis leukocyte esterase, nitrite positive pointing towards UTI, previous microbiology in 2011, no resistant bacteria noted. CT shows previous stroke but no acute changes, Subacute to chronic left MCA territory infarct with ex vacuo dilatation of the left lateral ventricle. Past Medical History CVA 2019 with no residual weakness, HTN, Seizures Past Surgical History Cholecystectomy, tonsillectomy HUB LEAD History: No Pertinent HUB LEAD History Family History: Hypertension G8 FATHER Social History Social History : Smoker: Cigarettes occasionally, Less Than 1 Pack/Day Alcohol: Drink socially Drugs: Denies Drug Use Lives In: Home Allergy: No known allergies Allergies: Coded Allergies: NO KNOWN ALLERGIES (Unverified , 04/26/12) Home Meds Reported Medications Lisinopril (Lisinopril) 20 Mg Tab, 1 TAB PO DAILY, #30 TAB 5 Refills 01/24/25 Current Medications Current Medications Medications (Trade) Dose Ordered Sig/Mariano Route PRN Reason Start Time Stop Time Status Last Admin Atorvastatin Calcium (Lipitor) 40 mg HS PO 01/24/25 22:00 01/24/25 21:38 Review of Systems Constitutional: Yes: Malaise; No: Fever, Chills, Sweats, Weakness, Other Eyes: No: Pain, Vision change, Conjunctivae inflammation, Eyelid inflammation, Other, Redness ENT: No: Ear pain, Ear discharge, Nose pain, Nose discharge, Nose congestion, Mouth pain, Mouth swelling, Throat pain, Throat swelling, Other Respiratory: No: Cough, Dry, Shortness of breath, SOB with excertion, Wheezing, Hemoptysis, Pleuritic Pain, Sputum, Wheezing, Other Cardiovascular: No: Chest Pain, Palpitations, Orthopnea, Paroxysmal Noc. Dyspnea, Edema, Lt Headedness, Other Gastrointestinal: No: Nausea, Vomiting, Abdominal Pain, Diarrhea, Constipation, Melena, Hematochezia, Other Genitourinary: No Dysuria; Frequency; No Incontinence, No Hematuria, No Retention, No Other Musculoskeletal: No: other, neck pain, shoulder pain, arm pain, back pain, hand pain, leg pain, foot pain Skin: No: Rash, Lesions, Jaundice, Bruising, Other Neurological: Numbness, Other (Tingling sensation in both left upper and lower extremity); No: Weakness, Incoordination, Change in speech, Confusion, Seizures Allergies: Coded Allergies: NO KNOWN ALLERGIES (Unverified , 04/26/12) Medications Current Medications Medications Dose Ordered Sig/Mariano Route Start Time Stop Time Status Last Admin Dose Admin Sodium Chloride 1,000 ml @ 60 mls/hr [id number] IV 01/23/25 22:00 UNV Acetaminophen 325 mg Q4HP PRN PO 01/23/25 22:00 UNV Ondansetron HCl 4 mg Q4HP PRN IV 01/23/25 22:00 UNV Docusate Sodium 100 mg BIDPRN PRN PO 01/23/25 22:00 UNV Enoxaparin Sodium 40 mg DAILY SC 01/24/25 10:00 UNV Nitroglycerin 0.4 mg Q5MINP PRN SL 01/23/25 22:00 UNV Morphine Sulfate 2 mg Q30M PRN IV 01/23/25 22:00 UNV Atorvastatin Calcium 40 mg HS PO 01/24/25 22:00 UNV Ceftriaxone Sodium 50 ml @ 100 mls/hr DAILY@09 IV 01/24/25 09:00 UNV Aspirin 81 mg DAILY PO 01/24/25 10:00 UNV Vital Signs Vital Signs Date Time Temp Pulse Resp B/P (MAP) Pulse Ox O2 Delivery O2 Flow Rate FiO2 01/25/25 17:00 98.5 79 16 142/72 (95) 97 98.5 01/25/25 08:00 Room Air* 0 21 Physical Exam Vital Signs Date Time Temp Pulse Resp B/P (MAP) Pulse Ox O2 Delivery O2 Flow Rate FiO2 01/23/25 19:51 98.7 90 18 115/73 (87) 99 98.7 General Appearance: Oriented X3, Cooperative, mild distress HEENT: Atraumatic, PERRLA, EOMI Respiratory: Clear to auscultation, Normal air movement Cardiovascular: Regular rate, Normal S1, Normal S2 Abdominal: Normal bowel sounds, Soft, No tenderness Extremities: No clubbing, No cyanosis, No edema Skin: No rashes, No breakdown Neuro: Normal gait, Strength at 5/5 X4 ext (Tingling sensation both upper and lower extremity), Sensation intact Labs/Diagnostic Data Labs Test 01/25/25 06:01 01/24/25 02:43 01/23/25 20:39 01/23/25 19:37 Range/Units White Blood Count 7.3 # 4.4-10.8 10^3/uL Red Blood Count 4.88 4.0-5.20 10^6/uL Hemoglobin 15.1 12.2-16.2 g/dL Hematocrit 43.0 # 36.0-46.0 % Mean Corpuscular Volume 88.2 80.0-100.0 fL Mean Corpuscular Hemoglobin 30.9 28.0-32.0 pg Mean Corpuscular Hemoglobin Concent 35.0 32.0-36.0 g/dL Red Cell Distribution Width 13.2 11.8-14.3 % Platelet Count 245 140-450 10^3/uL Mean Platelet Volume 7.8 6.9-10.8 fL Neutrophils (%) (Auto) 51.8 37.0-80.0 % Lymphocytes (%) (Auto) 36.3 10.0-50.0 % Monocytes (%) (Auto) 6.7 0.0-12.0 % Eosinophils (%) (Auto) 4.5 0.0-7.0 % Basophils (%) (Auto) 0.7 0.0-2.0 % Neutrophils # (Auto) 3.8 1.6-8.6 10 ^3/uL Lymphocytes # (Auto) 2.6 0.4-5.4 10 ^3/uL Monocytes # (Auto) 0.5 0-1.3 10 ^3/uL Eosinophils # (Auto) 0.3 0-0.8 10 ^3/uL Basophils # (Auto) 0.1 0-0.2 10 ^3/uL Nucleated Red Blood Cells 0.0 % Sodium Level 140 136-145 mmol/L Potassium Level 4.6 3.5-5.1 mmol/L Chloride Level 109 H 98-107 mmol/L Carbon Dioxide Level 23 20-31 mmol/L Anion Gap 8 5-15 Blood Urea Nitrogen 15 9-23 mg/dL Creatinine 0.84 0.550-1.02 mg/dL Glomerular Filtration Rate Calc 86 >90 mL/min BUN/Creatinine Ratio 17.9 10.0-20.0 Serum Glucose 89 74-106 mg/dL Calcium Level 8.3 L 8.7-10.4 mg/dL Hemoglobin A1c 5.2 <5.7 % A1C Total Bilirubin 0.3 0.2-1.0 mg/dL Aspartate Amino Transferase (AST) 15 13-40 U/L Alanine Aminotransferase (ALT) 14 7-40 U/L Alkaline Phosphatase 71 46-116 U/L Total Protein 6.8 5.7-8.2 g/dL Albumin 4.6 3.2-4.8 g/dL Triglycerides Level 231 H < 150 mg/dL Cholesterol Level 168 < 200 mg/dL LDL Cholesterol 106 H < 100 mg/dL HDL Cholesterol 43 40-59 mg/dL Troponin I High Sensitivity 8 </=34 ng/L B-Type Natriuretic Peptide 22.05 0-100 pg/mL Test 01/23/25 17:50 Range/Units Urine Color Colorless Yellow Urine Clarity Turbid H Clear Urine pH 5.5 5.0-9.0 Urine Specific Coldiron 1.023 1.001-1.035 Urine Protein Negative Negative Urine Ketones Negative Negative Urine Blood Negative Negative /uL Urine Nitrite 2+ H Negative Urine Bilirubin Negative Negative Urine Urobilinogen Normal Negative mg/dL Urine Leukocyte Esterase 3+ Negative /uL Urine RBC 7 0 - 4 /hpf Urine Microscopic WBC 14 H 0-5 /HPF Urine Squamous Epithelial Cells Few <5 /hpf Urine Bacteria None seen None Seen /hpf Urine Mucus Few None Seen Urine Glucose Normal Normal mg/dL Urine Test Negative Negative Microbiology Date/Time Source Procedure Growth Status 01/24/25 00:01 Blood Blood Culture - Preliminary NO GROWTH AFTER 24 HOURS OF INCUBATION. Resulted 01/23/25 17:50 Voided Urine Urine Culture - Preliminary Resulted RUN DATE: 08/04/25 PAGE 1 RUN TIME: 0957 [facility] [id number] [place] [id number] Karley Reyes M.D., Laboratory Spinner Operator PATIENT: THOR RODARTE ACCT: [id number] LOC: [facility] U: [id number] AGE/SX: 49/F ROOM: [id number] RE01/23/[address]: MARY GAN : 1975 BED: 2 DIS: STATUS: ADM IN TLOC: SPEC #: [id number] BRENT: 01/23/25 STATUS: RES REQ #: [id number] RECD: 01/23/[address]: MARY GA RESIDENT SOURCE: VOID ENTR: 01/23/[address] [facility] [address]: SPDESC: ORDERED: URC Procedure Result Urine Bacterial Culture Preliminary Report >100,000 CFU/mL Gram Negative Rods Still ruling out pathogens. Assessment Recurrent UTIs Plan/Recommendation CT AP NC Urine culture Outpatient cystoscopy with pelvic exam TBA Plan discussed with: Patient, Other COREY MALDONADO MD Jan 25, 2025 18:31
--- NOTE | 2025-01-26 00:40 | DVH ---
Exam: CT CT AB PEL WO CON-NO ORAL OR IV History: UTIs Comparison Study: None TECHNIQUE: Multidetector CT of the abdomen was performed from lung bases to pubic symphysis. Imaging was performed without IV contrast. Axial, coronal and sagittal multiplanar reformats were obtained fr om the axial data set by the technologist. Radiation Dose Information: Dose-length product is 1182.98 mGy*cm FINDINGS: Limited sections of the lung bases demonstrate no focal pulmonary mass. The liver, spleen, pancreas, and both adrenal glands demonstrate no acute findings. The gallbladder is surgically removed. The stomach is distended with residue. The small bowel loops are not dilated. The appendix is normal No colonic obstruction. Colonic diverticulosis without acute diverticulitis. Moderate stool burden ma y reflect constipation. Bilateral kidneys are unremarkable. No hydronephrosis. The urinary bladder is partially distended. No CT evidence of urinary bladder inflammation. No significant lymphadenopathy. No free air or free fluid. The aorta and IVC demonstrate no acute findings. Visualized osseous structures demonstrate no acute abnormality. IMPRESSION: 1. Limited evaluation in the absence of IV contrast. 2. No acute intra-abdominal process. 3. Colonic diverticulosis without acute diverticulitis. Moderate stool burden may reflect constipatio n. 4. No CT evidence of urinary bladder inflammation.
[2025-01-26 01:00] VITALS: BP 120/65; PULSE 81; RESP 18; TEMP 98.2; O2SAT 98
[2025-01-26 04:41] VITALS: BP 124/62; PULSE 68; RESP 18; TEMP 98.2; O2SAT 98
[2025-01-26 05:30] LABS: Hematocrit 44.0 % (36.0-46.0); Hemoglobin 15.5 g/dL (12.2-16.2); Mean Corpuscular Hemoglobin 31.3 pg (28.0-32.0); Mean Corpuscular Volume 88.8 fL (80.0-100.0); Nucleated Red Blood Cells % 0.1 %
[2025-01-26 05:37] LABS: Potassium 4.1 mmol/L (3.5-5.1); Sodium 139 mmol/L (136-145)
[2025-01-26 05:38] LABS: Anion Gap 8 (5-15); Carbon Dioxide 23 mmol/L (20-31)
[2025-01-26 05:43] LABS: Calcium 8.7 mg/dL (8.7-10.4); Chloride 108 mmol/L (98-107)
[2025-01-26 05:44] LABS: BUN/Creatinine Ratio 17.6 (10.0-20.0); Blood Urea Nitrogen 13 mg/dL (9-23); Glucose 101 mg/dL (74-106)
[2025-01-26 08:00] VITALS: PULSE 71; RESP 16; O2SAT 96
[2025-01-26 09:00] VITALS: BP 125/63; PULSE 71; RESP 18; TEMP 98.6; O2SAT 95
[2025-01-26 12:54] VITALS: BP 115/65; PULSE 73; RESP 18; TEMP 97.6; O2SAT 94
--- NOTE | 2025-01-26 16:30 | DVHDSRES ---
Discharge Summary Date of Admission Resident Creating Document: SOFIA GROVE RESIDENT Jan 23, 2025 at 22:00 Date of Discharge: Jan 26, 2025 Admitting Diagnosis left upper and lower extremity numbness and tingling Labs/Diagnostic Data: Laboratory Results Test 01/26/25 05:06 01/24/25 02:43 01/23/25 20:39 01/23/25 19:37 White Blood Count 8.8 10^3/uL (4.4-10.8) Red Blood Count 4.95 10^6/uL (4.0-5.20) Hemoglobin 15.5 g/dL (12.2-16.2) Hematocrit 44.0 % (36.0-46.0) Mean Corpuscular Volume 88.8 fL (80.0-100.0) Mean Corpuscular Hemoglobin 31.3 pg (28.0-32.0) Mean Corpuscular Hemoglobin Concent 35.3 g/dL (32.0-36.0) Red Cell Distribution Width 13.0 % (11.8-14.3) Platelet Count 254 10^3/uL (140-450) Mean Platelet Volume 7.7 fL (6.9-10.8) Neutrophils (%) (Auto) 55.7 % (37.0-80.0) Lymphocytes (%) (Auto) 32.5 % (10.0-50.0) Monocytes (%) (Auto) 6.9 % (0.0-12.0) Eosinophils (%) (Auto) 3.9 % (0.0-7.0) Basophils (%) (Auto) 1.0 % (0.0-2.0) Neutrophils # (Auto) 4.9 10 ^3/uL (1.6-8.6) Lymphocytes # (Auto) 2.9 10 ^3/uL (0.4-5.4) Monocytes # (Auto) 0.6 10 ^3/uL (0-1.3) Eosinophils # (Auto) 0.3 10 ^3/uL (0-0.8) Basophils # (Auto) 0.1 10 ^3/uL (0-0.2) Nucleated Red Blood Cells 0.1 % Sodium Level 139 mmol/L (136-145) Potassium Level 4.1 mmol/L (3.5-5.1) Chloride Level 108 mmol/L (98-107) Carbon Dioxide Level 23 mmol/L (20-31) Anion Gap 8 (5-15) Blood Urea Nitrogen 13 mg/dL (9-23) Creatinine 0.74 mg/dL (0.550-1.02) Glomerular Filtration Rate Calc 100 mL/min (>90) BUN/Creatinine Ratio 17.6 (10.0-20.0) Serum Glucose 101 mg/dL (74-106) Calcium Level 8.7 mg/dL (8.7-10.4) Hemoglobin A1c 5.2 % A1C (<5.7) Total Bilirubin 0.3 mg/dL (0.2-1.0) Aspartate Amino Transferase (AST) 15 U/L (13-40) Alanine Aminotransferase (ALT) 14 U/L (7-40) Alkaline Phosphatase 71 U/L (46-116) Total Protein 6.8 g/dL (5.7-8.2) Albumin 4.6 g/dL (3.2-4.8) Triglycerides Level 231 mg/dL (< 150) Cholesterol Level 168 mg/dL (< 200) LDL Cholesterol 106 mg/dL (< 100) HDL Cholesterol 43 mg/dL (40-59) Troponin I High Sensitivity 8 ng/L (</=34) B-Type Natriuretic Peptide 22.05 pg/mL (0-100) Test 01/23/25 17:50 Urine Color Colorless (Yellow) Urine Clarity Turbid (Clear) Urine pH 5.5 (5.0-9.0) Urine Specific [place] 1.023 (1.001-1.035) Urine Protein Negative (Negative) Urine Ketones Negative (Negative) Urine Blood Negative /uL (Negative) Urine Nitrite 2+ (Negative) Urine Bilirubin Negative (Negative) Urine Urobilinogen Normal mg/dL (Negative) Urine Leukocyte Esterase 3+ /uL (Negative) Urine RBC 7 /hpf (0 - 4) Urine Microscopic WBC 14 /HPF (0-5) Urine Squamous Epithelial Cells Few /hpf (<5) Urine Bacteria None seen /hpf (None Seen) Urine Mucus Few (None Seen) Urine Glucose Normal mg/dL (Normal) Urine Test Negative (Negative) Other Laboratory Tests 01/26/25 05:06 Brief Hx & Hospital Course: This is a 49-year-old female with past medical history of hypertension and cerebrovascular accident (CVA) 2019 with no residual weakness presents to the ED with a 5-day history of constant left arm/leg numbness, and tingling. Patient reports that her symptoms started 5 days ago and has found no alleviating factors. Patient states the symptoms started in her left hand and foot, then the numbness/tingling started to progress to her left wrist and ankle. Patient states she went to urgent Care for the symptoms, and was referred to the ER for further evaluation. Patient denies other associated symptoms, modifiers, recent injuries or sick contacts present at this time. Urinalysis shows leukocyte esterase, nitrite positive pointing towards UTI, previous microbiology in 2011, no resistant bacteria noted. CT shows previous stroke but no acute changes, Subacute to chronic left MCA territory infarct with ex vacuo dilatation of the left lateral ventricle. Patient seen at bedside. Patient complains with no signs of pain or respiratory distress. MRI Brain shows Chronic left MCA territory infarct with associated encephalomalacia. Nonspecific areas of T2/FLAIR hyperintense signal in the periventricular and subcortical white matter, may be seen with chronic small- vessel ischemic disease or demyelinating disease in the appropriate clinical setting. Neurology was consulted, however patient eloped before further evaluation and management could be completed. Operations or Procedures Exam: CT CT AB PEL WO CON-NO ORAL OR IV History: UTIs Comparison Study: None TECHNIQUE: Multidetector CT of the abdomen was performed from lung bases to pubic symphysis. Imaging was performed without IV contrast. Axial, coronal and sagittal multiplanar reformats were obtained from the axial data set by the technologist. Radiation Dose Information: Dose-length product is 1182.98 mGy*cm FINDINGS: Limited sections of the lung bases demonstrate no focal pulmonary mass. The liver, spleen, pancreas, and both adrenal glands demonstrate no acute findings. The gallbladder is surgically removed. The stomach is distended with residue. The small bowel loops are not dilated. The appendix is normal No colonic obstruction. Colonic diverticulosis without acute diverticulitis. Moderate stool burden may reflect constipation. Bilateral kidneys are unremarkable. No hydronephrosis. The urinary bladder is partially distended. No CT evidence of urinary bladder inflammation. No significant lymphadenopathy. No free air or free fluid. The aorta and IVC demonstrate no acute findings. Visualized osseous structures demonstrate no acute abnormality. IMPRESSION: 1. Limited evaluation in the absence of IV contrast. 2. No acute intra-abdominal process. 3. Colonic diverticulosis without acute diverticulitis. Moderate stool burden may reflect constipation. 4. No CT evidence of urinary bladder inflammation. PROCEDURE(s): CARCL - CAROTID DUPLX W COLOR DOP REASON: stoke ORDER NUMBER(s): [id number], ACCESSION NUMBER(s): [id number] Carotid Duplex Date: 01/25/2025 12:00 PM Clinical History: crystal Comparison: None Technique: Duplex Doppler evaluation of the extracranial carotid and vertebral arteries including color Doppler and spectral/pulsed waveform analysis was performed. Findings: carotid velocites within normal limits. IMPRESSION: No hemodynamically significant stenosis noted in the right carotid system. No hemodynamically significant stenosis noted in the left carotid system. Reference: Radiology 2003; 229:340-346 PROCEDURE(s): MBHL - BRAIN HEAD WO CONTRAST REASON: stroke ORDER NUMBER(s): [id number], ACCESSION NUMBER(s): [id number] CLINICAL INDICATION: stroke COMPARISON: CT HEAD WITHOUT CONTRAST on DOS: 01/23/25 TECHNIQUE: Multisequence multiplanar MRI images of the brain were obtained without contrast. FINDINGS: Chronic left MCA territory infarct with associated encephalomalacia. Small foci of hyperintense signal in the right centrum semiovale adjacent to the atrium of the right lateral ventricle, appears to be due to T2 shine through, with no associated hypointense signal on the ADC map. Small foci of hyperintense signal in the roz posteriorly also appear to be T2 shine through rather than acute infarcts. There are moderate areas of T2/FLAIR hyperintense signal in the periventricular and subcortical white matter, which are nonspecific, but may be seen with chronic small-vessel ischemic disease or demyelinating disease in the appropriate clinical setting. Small T2/FLAIR hyperintense foci also noted in the posterior aspect of the roz, measuring up to 0.7 cm in greatest dimension. No mass or midline shift. Ex vacuo dilatation of the left lateral ventricle due to the left MCA territory infarct. Ventricles are otherwise within normal limits. Basal cisterns are patent. [id number] mucosal thickening of the paranasal sinuses. Orbits are grossly unremarkable. IMPRESSION: 1. No evidence of acute intracranial abnormality. 2. Chronic left MCA territory infarcts. 3. Foci of hyperintense signal on the diffusion-weighted images in the right centrum semiovale and roz appear to be due to T2 shine through rather than acute infarcts, when compared to the ADC maps. 4. Nonspecific areas of T2/FLAIR hyperintense signal in the periventricular and subcortical white matter, may be seen with chronic small-vessel ischemic disease or demyelinating disease in the appropriate clinical setting. 5. Additional findings as described above. Indication: L hand/wrist, L foot/ankle numbness Comparison: None Technique: Utilizing a multislice CT scanner, a CT scan of the brain was performed without intravenous contrast. Coronal and sagittal reformatted images. All CT scans at this facility use dose modulation, iterative reconstruction, and/or weight based dosing when appropriate to reduce radiation dose to as low as reasonably achievable. Dose: CTDIvol: 53.28 mGy, DLP: 943.46 mGy.cm FINDINGS: Evaluation is mildly degraded by motion and streak artifact. There is tissue loss with gliosis/encephalomalacia within the left temporoparietal lobe. There is ex vacuo dilatation of the left lateral ventricle. There is no evidence for acute territorial infarct, hemorrhage, or mass effect. The orbits are normal. The visualized paranasal sinuses and mastoid air cells are clear. The soft tissues and osseous structures appear within normal limits. IMPRESSION: 1. Subacute to chronic left MCA territory infarct with ex vacuo dilatation of the left lateral ventricle. Comparison with prior outside imaging is suggested in assessing acuity and interval change. If no prior imaging is available, MRI is suggested in further assessment. 2. No acute intracranial hemorrhage. - ELECTROCARDIOGRAM REPORT PATIENT: THOR RODARTE ACCT: [id number] : 1975 LOC: [facility] ROOM / BED: 0244ADS / 2 AGE / SEX: 49 / F ADM STATUS: ADM IN SERVICE UNIT: [id number] ORDERING PHYSICIAN: TERRELL MEDEL MD PROCEDURE(s): EKG - ELECTROCARDIGRAM ORDER NUMBER(s): [id number], ACCESSION NUMBER(s): [id number] [facility] Test Date: 2025-01-23 Test Time: 22:59:19 Pat Name: THOR RODARTE Department: ED Room: 0244ADS 2 Gender: F Marketer: RJ : 1975 Requested By: TERRELL JEWELL Order Number: [id number] Kaylen MD: Sarbjit Prado Measurements Intervals [place] Rate: 77 P: 57 NC: 132 QRS: 11 QRSD: 103 T: 65 QT: 367 QTc: 416 Interpretive Statements Sinus rhythm Low voltage, extremity leads ST elev, probable normal early repol pattern Electronically Signed On 01-25-2025 22:06:57 PDT by Sarbjit Prado Please click the below link to view image of tracing. DICTATED BY:SARBJIT PRADO Sr., MD DICTATED DATE/TIME:01/23/25 3289 Condition at Discharge: Undetermined ( RN) Final Diagnosis/Problems List # Subacute to chronic CVA, # history of CVA in 2019 with no residual weakness # Urinary tract infection possibly gm negative organism # Neuropathy # Essential hypertension # H/o Cholecystectomy # H/o Tonsillectomy Discharge Disposition: Eloped Discharge Instruct/Medications Scheduled Lisinopril (Lisinopril), 1 TAB PO DAILY, (Reported) Discharge Statement: "Patient was advised to return to the ER or call 911 if any headaches, dizziness, shortness of breath, chest pain, abdominal pain, bleeding, fevers, or worsening of medical condition. Patient was counseled about treatment plan, medications, possible side effects, patientverbalized understanding. All questions were answered to the best of my ability. This discharge took greater then 30 minutes in planning, reviewing documentation, counseling the patient, and discussing with other team members." ASSESSMENT ASSESSMENT Assessment Date of Service: Jan 26, 2025 Billing Provider: RAQUEL NEGRON MD Common Visit Codes: 83745-ZXF/OBS DISCH DAY >30min SOFIA GROVE RESIDENT Jan 26, 2025 16:30 PAUL SINGH RESIDENT Jan 26, 2025 16:33 RAQUEL NEGRON MD Jan 31, 2025 12:24
--- NOTE | 2025-01-28 16:47 | DVHSR ---
APPROVED REPORT EXAM: Two-dimensional and M-mode echocardiogram with Doppler, color Doppler and Bubble Study. Blood Pressure: 90/66 mmHg INDICATION R/O Cardiac RISK FACTORS Height: 5'4", Weight: 198 DIMENSIONS LVDd4.6 (3.8-5.7cm)LA (2D)3.8 (1.9-4.0cm)Aortic Root2.6 (2.0-3.7cm) LVDs2.5 (2.5-4.0cm)LA (MM) (1.9-4.0cm)Aortic Cusp Exc1.4 (1.5-2.0cm) EF (%) 77.0 (55-70%)Rt. Atrium3.6 (1.9-4.0cm)Asc. Aorta2.7 cm IVSd0.7 (0.7-1.1cm)RV (D)3.3 (1.8-2.4cm) PWd0.9 (0.7-1.1cm) Mitral Valve MitralMitral Stenosis E wave0.81m/sMV Mean GR.mmHg A wave0.72m/sMV Peak GR.mmHg E/A ratio1.12D MVAcm2 DECEL [id number] 1/2 [place] Aortic Valve Aortic ValveAortic Stenosis V11.29m/Davey Mean GR.6mmHg V21.55m/Davey Peak GR.10mmHg LVOT Diameter1.9 (1.8-2.4cm)Doppler AVA2.36cm2 Other Information Technically limited study due to body habitus. Conclusion Sinus rhythm. Mild left atrial enlargement with concentric LVH. Mild aortic root enlargement. Valves are normal. Left ventricular function is preserved at 60% with normal RV function. There is mild tricuspid regurgitation. No pericardial effusion masses or vegetations.
== END 2025-01-26 15:00 | disposition left against medical advice (07) | DRG 74 ==
LOC: ER 17:39 → OVERFLOW 22:00 → EAST 01-24 18:06
PROVIDERS: ADMIT Internal Medicine Geriatric Medicine; ATTEND Emergency Medicine
DX: G62.9 Polyneuropathy, unspecified (principal); N30.00 Acute cystitis without hematuria; G93.89 Other specified disorders of brain; I10 Essential (primary) hypertension; F17.210 Nicotine dependence, cigarettes, uncomplicated; B96.89 Other specified bacterial agents as the cause of diseases classified elsewhere; Z53.29 Procedure and treatment not carried out because of patient's decision for other reasons; Z86.73 Personal history of transient ischemic attack (TIA), and cerebral infarction without residual deficits; Z82.49 Family history of ischemic heart disease and other diseases of the circulatory system; Z79.82 Long term (current) use of aspirin; Z90.49 Acquired absence of other specified parts of digestive tract
CPT/HCPCS: 36415; 70450; 70551; 74176; 80048; 80053; 80061; 81001; 81025; 83036; 83880; 84484; 85025; 87040; 87086; 87088; 87186; 93005; 93306; 93886; G0378